=== PATIENT | female | born 1980 | race Caucasian/White ===

== ENCOUNTER 2017-12-13 17:33 | Emergency (ER) | payer OTHER ==
[~2017-12-13 17:33] MED LIST: DOCU1CAP39 PO; IBUP800 PO; PERC5TAB12 PO; PREN0.01 PO
--- NOTE | 2017-12-13 19:16 | PD ---
HPI Chief Complaint pih Date Seen: December 13, 2017 Time Seen: 19:04 Travel History International Travel<30 Days: No Contact w/Intl Traveler<30Days: No Known Affected Area: No History of Present Illness HPI pt. is a 37 y/o @ 32 2/7 weeks present w/ c/o htn. 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 pt. call dr. montague and was told to come for eval. +FM, no lof/vb, no ctxs. no n/v, no cp/sob, no brian/ visual changes. pt. w/ h/o pih in previous . Weeks Gestation: 32 Para: 1 : 2 History Past Medical History Medical History: Denies Significant Hx Obstetric History Obstetric History , cd x 1, pih in last . Past Surgical History Narrative Surgical cd x 1 Family History Family History: Negative Social History Alcohol Use: No Tobacco Use: No Substance Abuse: No Allergies-Medications (Allergen,Severity, Reaction): Coded Allergies: No Known Allergies (Unverified , 08/31/12) Home Meds Active Scripts Docusate Sodium (Colace 100 Mg Cap) 100 Mg Cap, 100 MG PO DAILY for CONSTIPATION , #20 CAP 0 Refills Prov:Eden Sawant 06/08/14 Ibuprofen (Motrin 800 Mg Tab) 800 Mg Tab, 800 MG PO Q8 for PAIN, #30 TAB 0 Refills Prov:Eden Sawant 06/08/14 Oxycodone-Acetaminophen 5-325 mg (Percocet 5-325 mg) 1 Tab Tab, 1 TAB PO Q4H Y for PAIN, #30 TAB 0 Refills Prov:Ramon Aguilar MD 06/07/14 Reported Medications Multivit/Min/Fol Ac/Iron/Pren ( Vit ( Plus)) Tab, 1 TAB PO DAILY, TAB 06/04/14 Review of Systems Except as stated in HPI: all other systems reviewed are Neg Physical Exam Narrative GENERAL: Well-nourished, well-developed patient. SKIN: Warm and dry. HEAD: Normocephalic and atraumatic. EYES: No scleral icterus. No injection or drainage. ENT: No nasal drainage noted. Mucous membranes pink. Airway patent. NECK: Supple, trachea midline. No JVD. CARDIOVASCULAR: Regular rate and rhythm without murmurs, gallops, or rubs. RESPIRATORY: Breath sounds equal bilaterally. No accessory muscle use. ABDOMEN/GI: Abdomen soft, non-tender, bowel sounds present, no rebound, no guarding Gravid GENITOURINARY: External Genitalia: intact and normal in appearance Uterine Contractions: none Category: 1 Reactive: + Variability: mod EXTREMITIES: No cyanosis or edema. BACK: Nontender without obvious deformity. No CVA tenderness. NEUROLOGICAL: Awake and alert. Motor and sensory grossly within normal limits. Five out of 5 muscle strength in all muscle groups. Normal speech. Data Data Vital Signs Reviewed: Yes Orders Orders Cbc No Diff, Includes Plts (12/13/17 18:25) Comprehensive Metabolic Panel (12/13/17 18:25) Uric Acid (12/13/17 18:25) Urinalysis - C+S If Indicated (12/13/17 18:25) [facility] Medical Record Reviewed: Yes Plan pt. w/o pih/preeclampsia. pt. to be d/c to home. given precautions for return. all ? answered. f/u as sched. Diagnosis Diagnosis: Primary Impression: PIH ( induced hypertension) Additional Impression: 32 weeks gestation of Disposition: DISCHARGE HOME Melvin Ken Jr., MD December 13, 2017 19:16
[2017-12-13 19:46] LABS: HEMATOCRIT 33.8 % (35.0-46.0); HEMOGLOBIN 11.3 GM/DL (11.6-15.3); MEAN CELL VOLUME 76.9 FL (80.0-100.0); MEAN CORPUSCULAR HEMOGLOBIN 25.7 PG (27.0-34.0); MEAN CORPUSCULAR HGB CONC 33.4 % (32.0-36.0); MEAN PLATELET VOLUME 8.2 FL (7.0-11.0); PLATELET COUNT 288 TH/MM3 (150-450); RED BLOOD COUNT 4.39 MIL/MM3 (4.00-5.30); WHITE BLOOD COUNT 10.2 TH/MM3 (4.0-11.0)
[2017-12-13 20:02] LABS: ALBUMIN 2.4 GM/DL (3.4-5.0); AST (GOT) 23 U/L (15-37); BICARBONATE 22.1 MEQ/L (21.0-32.0); BLOOD UREA NITROGEN 3 MG/DL (7-18); CALCIUM 8.7 MG/DL (8.5-10.1); CHLORIDE 107 MEQ/L (98-107); CREATININE 0.49 MG/DL (0.50-1.00); GLOMERULAR FILTRATION RATE 141 ML/MIN (>89); GLUCOSE,RANDOM 81 MG/DL (74-106); SODIUM (NA) 139 MEQ/L (136-145)
[2017-12-13 20:03] LABS: ALT (GPT) 12 U/L (10-53)
[2017-12-13 20:05] LABS: ALKALINE PHOSPHATASE 74 U/L (45-117); TOTAL BILIRUBIN ADULT 0.3 MG/DL (0.2-1.0); TOTAL PROTEIN 6.1 GM/DL (6.4-8.2)
[2017-12-13 20:09] LABS: BACTERIA, URINE FEW /hpf; BILIRUBIN, URINE NEG (NEG); BLOOD, URINE NEG (NEG); GLUCOSE,URINE NEG (NEG); KETONE, URINE 10 mg/dL (NEG); MUCUS URINE FEW /lpf (OCC); NITRITE,URINE NEG (NEG); PH, URINE 6.5 (5.0-8.5); SQUAMOUS EPITHELIAL CELL URINE 52 /hpf (0-5); URINE COLOR YELLOW (YELLW/STRAW); URINE LEUKOCYTE ESTERASE NEG (NEG)
== END 2017-12-13 20:37 | disposition home or self-care (01) ==
LOC: HOBED 17:33
DX: O13.3 Gestational [pregnancy-induced] hypertension without significant proteinuria, third trimester (principal); Z3A.32 32 weeks gestation of pregnancy
CPT/HCPCS: 36415; 80053; 81001; 84550; 85027

== ENCOUNTER 2018-01-12 19:58 | Inpatient (IN) ==
[2018-01-15] MEDS ORDERED: Senna/Docusate Sodium 8.6/50 MG Tablet PO PRN (01:00)
[2018-01-15] MEDS ORDERED: Labetalol 200 MG Tablet PO SCH (01:00)
[2018-01-15] MEDS ORDERED: Ibuprofen 600 MG Tablet PO PRN (01:00)
[2018-01-15] MEDS ORDERED: Zolpidem Tartrate 5 MG Tablet PO PRN (01:00)
[2018-01-15] MEDS ORDERED: Simethicone 80 MG Chew Tablet PO PRN (01:00)
--- NOTE | 2018-01-15 08:22 | P.PNOB ---
Subjective Post op day: 3 Interval history: doing well, pain controlled, nita po, passing flatus, ambulating Objective Vital Signs/I&O: Vital Signs 01/15/18 00:58 01/15/18 04:00 Temperature 98.2 F 98.1 F Pulse Rate 87 85 Respiratory Rate 18 20 Blood Pressure 145/97 H 132/90 Intake & Output 01/14/18 01/15/18 01/15/18 18:59 06:59 18:59 Weight 137 kg Result Diagrams: 01/13/18 05:23 01/12/18 21:00 Objective Remarks: GENERAL: Well-nourished, well-developed patient. CARDIOVASCULAR: Regular rate and rhythm without murmurs, gallops, or rubs. RESPIRATORY: Breath sounds equal bilaterally. No accessory muscle use. ABDOMEN/GI: Abdomen soft, non-tender, bowel sounds present. Incision: Clean, dry and intact. Fundus: Firm, non-tender at umbilicus. GENITOURINARY: Light to moderate bleeding. EXTREMITIES: No cyanosis or edema, non-tender, without signs of DVT. Medications and IVs: Active Medications Labetalol HCl (Trandate) 100 mg PO BID ANUJA Ondansetron HCl (Zofran Inj) 4 mg IV.PUSH Q6H PRN PRN Reason: NAUSEA OR VOMITING Oxycodone/Acetaminophen (Percocet 5/325 Mg) 1 tab PO Q4H PRN PRN Reason: PAIN 3-5 Oxycodone/Acetaminophen (Percocet 5/325 Mg) 2 tab PO Q4H PRN PRN Reason: PAIN SCALE 6-10 OR SEVERE SOB Senna/Docusate Sodium (Isabel-Colace) 2 tab PO Q12H PRN PRN Reason: CONSTIPATION Simethicone (Mylicon Chew) 80 mg PO QID PRN PRN Reason: FLATULENCE Sodium Chloride (Ns Flush) 2 ml IV.FLUSH BID ANUJA Sodium Chloride (Ns Flush) 2 ml IV.FLUSH PRN PRN PRN Reason: FLUSH AFTER USING IV ACCESS Zolpidem Tartrate (Ambien) 5 mg PO HS PRN PRN Reason: INSOMNIA Assessment and Plan - Diagnosis (1) Gestational hypertension Code(s): O13.9 - Gestational [-induced] hypertension without significant proteinuria, unspecified trimester Status: Acute (2) Status post repeat low transverse section Code(s): Z98.891 - History of uterine scar from previous surgery Status: Acute - Plan POD 3- continue routine supportive care, support Mild range bp, cont on labetalol 100mg bid, f/u 1 wk in office dispo- home today. Baby still in NICU, will transition to peds today Discharge Planning: home today
[2018-01-15] MEDS ORDERED: Labetalol 100 MG Tablet PO SCH (09:00)
== END 2018-01-15 14:48 | disposition home or self-care (01) ==
LOC: UNDODISIN → H1EA 19:58
PROVIDERS: ADMIT Obstetrics & Gynecology; ATTEND Obstetrics & Gynecology